=== PATIENT | male | born 1950 ===

== ENCOUNTER → 2024-01-17 06:27 | Day surgery (SDC) | payer BC, SELFPAY ==
[2024-01-17 13:50] VITALS: BMI 27.9
[2024-01-17 13:51] VITALS: BMI 27.9
[2024-01-17 13:52] VITALS: BP 148/87
[2024-01-17] MEDS: NORMOSOL-R 1000 IV (13:54)
[2024-01-17] MEDS: HEPARIN 5000 UNITS SC (13:56)
[2024-01-17] MEDS: NEURONTIN 300 MG PO (13:56)
[2024-01-17] MEDS: TYLENOL 1000 MG PO (13:56)
[2024-01-17 15:00] VITALS: BP 148/87
[2024-01-17 15:01] VITALS: BP 115/66
--- NOTE | 2024-01-17 15:11 | OR.RPT ---
Operative Report
Operative Report
Patient Name: Raheel Ge
Date of : 1950
Date of Operation: January 17, 2024
Preoperative Diagnosis:
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
������������������� Upper back nodule BCC � [id number]
Postoperative Diagnosis Same
Surgeon: Dain Arroyo M.D.
Operation:
������������������� Radical resection of the back malignant melanoma in situ - 38742 (6 x 3 cm)
������������������� Resection of the upper back nodular BCC � 92047 (4 x 2 cm)
Anesthesia: Local with IV sedation
Estimated Blood Loss: Minimal
Drains: None
Specimen: back malignant melanoma in situ and upper back nodular BCC
Complications: �None
Procedure:
The patient was taken to the operating room and placed in the usual prone position. After adequate IV sedation was obtained, the patient's back was prepped and draped in the usual sterile fashion. The area around the tumor was injected with 1%
lidocaine. An elliptical incision (6 cm x 3 cm) was made over the lower back melanoma in situ with a #15 blade. The subcutaneous tissue and the underlying fascia were divided with electrocautery. The tumor was identified, carefully resected off the
underlying muscle, and sent for pathology evaluation.
Next, attention was turned to the upper back. The area around the tumor was injected with 1% lidocaine. An elliptical incision (4 cm x 2 cm) was made over the lesion with a #15 blade. The subcutaneous tissue and the underlying fascia were divided
with electrocautery. The tumor was identified, carefully resected off the underlying muscle, and sent for pathology evaluation.
After obtaining adequate hemostasis, the incisions were closed in multiple layers. The fascia was reapproximated with #2-0 Vicryl in an interrupted fashion. The subcutaneous tissue was approximated with #3-0 Vicryl interrupted fashion. The skin was
approximated with #4-0 Monocryl in a running subcuticular fashion.
The Steri-Strips and sterile dressings were applied to the incisions. The patient tolerated the procedure well. The final instrument, needle, and sponge counts were correct. The patient was transferred to the recovery room.
Wide Local Excision
Wide Local Excision
Operation performed with curative intent: Yes
Original Breslow thickness of lesion (in mm): melanoma in situ
Clinical Margin Width: 0.5 cm
Depth of Excision: Full Thickness skin/subcutaneous tissue down to fascia (melanoma)
[2024-01-17 15:20] VITALS: BP 110/88
[2024-01-17 15:35] VITALS: BP 130/73
[2024-01-17 15:45] VITALS: BP 125/71
== END ==
LOC: SDS 06:27
PROVIDERS: ATTENDING PHYSICIAN Surgery
DX: D03.59 Melanoma in situ of other part of trunk (principal); C44.519 Basal cell carcinoma of skin of other part of trunk
CPT/HCPCS: 21935; 21930; 88305